=== PATIENT | female | born 1940 | race Caucasian/White ===

== ENCOUNTER 2016-10-14 14:43 | Observation (INO) | payer OTHER ==
[~2016-10-14] VITALS: Ht 154.9 cm; Wt 71.8 kg
[~2016-10-14 14:43] MED LIST: ASPI-496 PO; CA ZINC PO; CALCIUM PO; CHONDROITIN PO; GLUCOSAMINE PO
[2016-10-14] MEDS ORDERED: SODIUM CHLORIDE FLUSH 10ML SYR IVF ONE (16:00)
[2016-10-14 16:27] LABS: BLOOD UREA NITROGEN 17 mg/dL (7-18)
[2016-10-14 16:32] LABS: IS PT STATUS REG ER OR PRE ER? YES
[2016-10-14] MEDS ORDERED: NITROGLYCERIN OINT 2%, 1GM TP ONE ×2 (17:28→17:30)
[2016-10-14] MEDS ORDERED: SODIUM CHLORIDE FLUSH 10ML SYR IVF PRN (17:30)
[2016-10-14 18:39] VITALS: BP 134/76
[2016-10-14] MEDS ORDERED: TEMAZEPAM 15 MG CAPSULE PO PRN (19:00)
[2016-10-14] MEDS ORDERED: NITROGLYCERIN 0.4 MG/SPRAY SL PRN (19:00)
[2016-10-14] MEDS ORDERED: DOCUSATE 100 MG CAPSULE PO PRN (19:00)
[2016-10-14] MEDS ORDERED: ENALAPRILAT 1.25 MG/ML, 2ML IVPush PRN (19:00)
[2016-10-14] MEDS ORDERED: ONDANSETRON 2MG/ML, 2ML IVPush PRN (19:00)
[2016-10-14] MEDS ORDERED: morphine SULFATE 10 MG/ML, 1ML IVPush PRN (19:00)
[2016-10-14] MEDS: HEPARIN 5,000 UNITS/ML, 1ML SQ SCH (20:52)
[2016-10-14 21:13] LABS: IS PT STATUS REG ER OR PRE ER? NO
[2016-10-15 03:03] LABS: IS PT STATUS REG ER OR PRE ER? NO
[2016-10-15 04:35] VITALS: BP 120/82
[2016-10-15] MEDS: HEPARIN 5,000 UNITS/ML, 1ML SQ SCH ×2 (05:00→13:00)
[2016-10-15 07:30] VITALS: BP 135/88
[2016-10-15] MEDS ORDERED: REGADENOSON 0.4 MG/5 ML SYRINGE ONE (08:06)
[2016-10-15] MEDS ORDERED: ASPIRIN 81 MG TABLET EC PO SCH (09:00)
[2016-10-15 14:18] VITALS: BP 117/77
== END 2016-10-15 16:34 | disposition home or self-care (01) ==
LOC: ED 17:19 → INTOOBSV 17:20 → EDIP 17:20 → ED 17:40 → 5SO 18:25
PROVIDERS: ADMIT Hospitalist; ATTEND Internal Medicine
DX: R07.89 Other chest pain (principal); E66.9 Obesity, unspecified; I10 Essential (primary) hypertension; E78.5 Hyperlipidemia, unspecified; Z68.30 Body mass index [BMI] 30.0-30.9, adult; Z79.82 Long term (current) use of aspirin
CPT/HCPCS: 36415; 71010; 78452; 80048; 80061; 82040; 83735; 84100; 84439; 84443; 84484; 85025; 85610; 85730; 93005; 93017; 93306; 96372; 99285; A9502; C9898; G0378; J1644; J2785